=== PATIENT | female | born 1950 | race Caucasian/White ===

== ENCOUNTER 2022-12-24 19:49 | Inpatient (IN) | payer SELFPAY ==
[~2022-12-24] VITALS: Ht 162.6 cm; Wt 62.6 kg
[2022-12-24] MEDS ORDERED: KETOROLAC 30MG/ML VIAL IM ONE (20:15)
[2022-12-24] MEDS ORDERED: MORPHINE SULFATE 4 MG/ML CPJ (NOT FOR IM USE) IV NR (20:45)
[2022-12-24 21:19] LABS: BASOPHILS % 0.7 % (0.0-2.0); EOSINOPHILS % 3.1 % (0.0-5.0); HEMATOCRIT. 33.5 % (36.0-48.0); HEMOGLOBIN. 11.3 g/dL (12.0-16.0); LYMPHOCYTES % 53.2 % (20.0-50.0); MEAN CORPUSCULAR HEMOGLOBIN 31.2 pg (28.0-32.0); MEAN CORPUSCULAR HGB CONC 33.7 g/dL (31.0-37.0); MEAN CORPUSCULAR VOLUME 92.5 fL (81.0-99.0); MEAN PLATELET VOLUME 6.9 fl (7.4-10.4); MONOCYTES % 7.7 % (2.0-8.0); NEUTROPHILS % 35.3 % (40.0-76.0); PLATELET 267 x1000/uL (130-400); RED BLOOD CELL COUNT 3.62 mill/uL (4.2-5.4); RED CELL DISTRIBUTION WIDTH 13.9 % (11.6-14.6)
[2022-12-24 21:30] LABS: CHLORIDE 101 mEq/L (98-107); INDEX HEMOLYSI 1 (1-3); INDEX ICTERIC 1 (1-4); INDEX LIPEMIC 1 (1-3); POTASSIUM 4.5 mEq/L (3.5-5.1); SODIUM 132 mEq/L (136-145)
[2022-12-24 21:32] LABS: PARTIAL THROMBOPLASTIN TIME 27.5 sec (23.4-31.0); PROTHROMBIN TIME 11.1 sec (9.6-11.0)
[2022-12-24 21:38] LABS: ALANINE AMINOTRANSFERASE 46 IU/L (13-61); ALBUMIN 3.3 g/dL (3.4-5.0); ASPARTATE AMINOTRANSFERASE 28 IU/L (15-37); BILIRUBIN TOTAL 0.1 mg/dL (0.1-1.0); CALCIUM 8.7 mg/dL (8.5-10.1); CARBON DIOXIDE 27 mEq/L (21-32); CREATININE 0.6 mg/dL (0.6-1.3); GLUCOSE 91 mg/dL (70-105); PROTEIN TOTAL 7.4 g/dL (6.0-8.3); UREA NITROGEN BLOOD 18 mg/dL (7-21)
[2022-12-24] MEDS ORDERED: ACETAMINOPHEN 325MG TABLET PO PRN ×2 (23:30)
[2022-12-24] MEDS ORDERED: MAGNESIUM/ALUMINUM HYDROXIDE/SIMETHICONE 30ML UDC PO PRN (23:30)
[2022-12-24] MEDS ORDERED: CLONIDINE 0.1MG TABLET PO PRN (23:30)
[2022-12-24] MEDS ORDERED: LORAZEPAM 2MG/ML CPJ IV PRN (23:30)
[2022-12-24] MEDS ORDERED: DEXTROSE 50% WATER 50ML SYRINGE IV PRN (23:30)
[2022-12-24] MEDS ORDERED: IPRATROPIUM/ALBUTEROL 0.5-3(2.5)MG/3ML NEB HHN PRN (23:30)
[2022-12-24] MEDS ORDERED: DOCUSATE SODIUM 100MG CAPSULE PO PRN (23:30)
[2022-12-24] MEDS ORDERED: ONDANSETRON HCL 4MG/2ML INJ IV PRN (23:30)
[2022-12-24] MEDS ORDERED: NALOXONE HCL 0.4MG/ML VIAL IV PRN (23:45)
[2022-12-25] VITALS (7 sets, daily range): BP systolic 69–165; BP diastolic 35–97; PULSE 60–99; RESP 15–20; TEMP 96.1–98.7
[2022-12-25 00:58] LABS: PHOSPHORUS 4.7 mg/dL (2.5-4.9)
[2022-12-25 01:34] LABS: VITAMIN B12 SERUM 503 pg/mL (211-911)
[2022-12-25] MEDS: SODIUM CHLORIDE 0.9% 1,000 ML IV NR ×2 (02:02→14:50)
[2022-12-25] MEDS: HYDROCODONE/ACETAMINOPHEN 5/325MG TABLET PO PRN ×3 (05:51→17:45)
[2022-12-25] MEDS: BLOOD SUGAR DIAGNOSTIC STRIP TEST SCH ×4 (06:03→21:00)
[2022-12-25 06:47] LABS: BASOPHILS % 0.7 % (0.0-2.0); EOSINOPHILS % 3.3 % (0.0-5.0); HEMOGLOBIN. 11.9 g/dL (12.0-16.0); LYMPHOCYTES % 59.1 % (20.0-50.0); MEAN CORPUSCULAR HEMOGLOBIN 31.3 pg (28.0-32.0); MEAN PLATELET VOLUME 7.2 fl (7.4-10.4); MONOCYTES % 7.7 % (2.0-8.0); NEUTROPHILS % 29.2 % (40.0-76.0); PLATELET 275 x1000/uL (130-400); WHITE BLOOD COUNT 5.3 x1000/uL (4.5-11.0)
[2022-12-25 08:01] LABS: CHLORIDE 100 mEq/L (98-107); INDEX HEMOLYSI 1 (1-3); INDEX ICTERIC 1 (1-4); INDEX LIPEMIC 1 (1-3); POTASSIUM 4.4 mEq/L (3.5-5.1); SODIUM 132 mEq/L (136-145)
[2022-12-25 09:36] LABS: ALANINE AMINOTRANSFERASE 55 IU/L (13-61); ALBUMIN 3.1 g/dL (3.4-5.0); ASPARTATE AMINOTRANSFERASE 45 IU/L (15-37); BILIRUBIN TOTAL 0.3 mg/dL (0.1-1.0); CARBON DIOXIDE 28 mEq/L (21-32); CHOLESTEROL 175 mg/dL (<200); CREATINE KINASE 50 IU/L (26-192); CREATINE KINASE MB FRACTION 1.1 ng/mL (0.5-3.6); CREATININE 0.6 mg/dL (0.6-1.3); GLUCOSE 86 mg/dL (70-105); HDL CHOLESTEROL 79 mg/dL (40-59); LDL CHOLESTEROL 86 mg/dL (5-100); TROPONIN I HIGH SENSITIVITY 4 ng/L (<54); UREA NITROGEN BLOOD 15 mg/dL (7-21)
[2022-12-25] MEDS: ENOXAPARIN 40MG/0.4ML SYR SUBCUT SCH (09:47)
[2022-12-25] MEDS: FAMOTIDINE 20MG TABLET PO SCH ×2 (09:47→21:17)
[2022-12-26] MEDS ORDERED: KETOROLAC 30MG/ML VIAL IV PRN (00:30)
[2022-12-26] MEDS: HYDROCODONE/ACETAMINOPHEN 5/325MG TABLET PO PRN (00:48)
[2022-12-26 04:00] VITALS: BP 125/92; PULSE 106; RESP 20; TEMP 97.6
[2022-12-26] MEDS: SODIUM CHLORIDE 0.9% 1,000 ML IV NR (04:10)
[2022-12-26] MEDS: BLOOD SUGAR DIAGNOSTIC STRIP TEST SCH ×4 (06:55→20:13)
[2022-12-26 08:00] VITALS: BP 153/93; PULSE 101; RESP 19; TEMP 98.3
[2022-12-26] MEDS: ENOXAPARIN 40MG/0.4ML SYR SUBCUT SCH (09:00)
[2022-12-26] MEDS ORDERED: RISPERIDONE 1MG TABLET PO SCH (09:00)
[2022-12-26] MEDS ORDERED: RISPERIDONE 0.5MG TABLET PO SCH (09:00)
[2022-12-26] MEDS: FAMOTIDINE 20MG TABLET PO SCH ×2 (09:00→20:06)
[2022-12-26 12:00] VITALS: BP 138/98; PULSE 98; RESP 18; TEMP 98.5
[2022-12-26 16:00] VITALS: BP 128/68; PULSE 99; RESP 19; TEMP 97.5
[2022-12-26 20:00] VITALS: BP 103/67; PULSE 93; RESP 20; TEMP 97.8
[2022-12-26] MEDS: RISPERIDONE 0.5MG TABLET PO SCH (20:06)
[2022-12-26 20:53] LABS: TRIGLYCERIDE 58 mg/dL (0-150)
[2022-12-27] VITALS (7 sets, daily range): BP systolic 128–167; BP diastolic 71–99; PULSE 67–110; RESP 20; TEMP 97.5–98.2; O2SAT 97
[2022-12-27] MEDS: HYDROCODONE/ACETAMINOPHEN 5/325MG TABLET PO PRN ×3 (03:29→20:38)
[2022-12-27 06:40] LABS: BASOPHILS % 0.5 % (0.0-2.0); EOSINOPHILS % 0.3 % (0.0-5.0); HEMATOCRIT. 36.4 % (36.0-48.0); HEMOGLOBIN. 12.7 g/dL (12.0-16.0); LYMPHOCYTES % 37.2 % (20.0-50.0); MEAN CORPUSCULAR HGB CONC 34.9 g/dL (31.0-37.0); MEAN CORPUSCULAR VOLUME 91.6 fL (81.0-99.0); MEAN PLATELET VOLUME 7.1 fl (7.4-10.4); MONOCYTES % 7.6 % (2.0-8.0); NEUTROPHILS % 54.4 % (40.0-76.0); PLATELET 317 x1000/uL (130-400); RED BLOOD CELL COUNT 3.98 mill/uL (4.2-5.4); RED CELL DISTRIBUTION WIDTH 13.7 % (11.6-14.6); WHITE BLOOD COUNT 6.5 x1000/uL (4.5-11.0)
[2022-12-27] MEDS: BLOOD SUGAR DIAGNOSTIC STRIP TEST SCH ×3 (07:20→20:58)
[2022-12-27 08:25] LABS: CALCIUM 9.4 mg/dL (8.5-10.1); CHLORIDE 100 mEq/L (98-107); INDEX HEMOLYSI 1 (1-3); INDEX ICTERIC 1 (1-4); INDEX LIPEMIC 1 (1-3); POTASSIUM 4.2 mEq/L (3.5-5.1); SODIUM 134 mEq/L (136-145)
[2022-12-27 08:34] LABS: CARBON DIOXIDE 23 mEq/L (21-32); CREATININE 0.5 mg/dL (0.6-1.3); GLUCOSE 78 mg/dL (70-105); UREA NITROGEN BLOOD 12 mg/dL (7-21)
[2022-12-27] MEDS: RISPERIDONE 0.5MG TABLET PO SCH (08:46)
[2022-12-27] MEDS: FAMOTIDINE 20MG TABLET PO SCH ×2 (08:46→20:27)
[2022-12-27] MEDS: ENOXAPARIN 40MG/0.4ML SYR SUBCUT SCH (08:47)
[2022-12-27] MEDS ORDERED: RISP1 PO (12:15)
[2022-12-27] MEDS: RISPERIDONE 1MG TABLET PO SCH ×2 (16:02→20:27)
[2022-12-27 19:12] LABS: FERRITIN 146 ng/mL (10-291)
[2022-12-28] VITALS: BP 135/85; PULSE 94; RESP 20; TEMP 98.1
[2022-12-28 04:00] VITALS: BP 148/88; PULSE 91; RESP 20; TEMP 97.9
[2022-12-28] MEDS: HYDROCODONE/ACETAMINOPHEN 5/325MG TABLET PO PRN (05:46)
[2022-12-28] MEDS: BLOOD SUGAR DIAGNOSTIC STRIP TEST SCH (07:20)
[2022-12-28 08:00] VITALS: BP 151/90; PULSE 83; RESP 19; TEMP 97.1
[2022-12-28 08:15] LABS: BASOPHILS % 0.6 % (0.0-2.0); EOSINOPHILS % 1.5 % (0.0-5.0); HEMATOCRIT. 38.7 % (36.0-48.0); HEMOGLOBIN. 13.4 g/dL (12.0-16.0); LYMPHOCYTES % 38.8 % (20.0-50.0); MEAN CORPUSCULAR HGB CONC 34.6 g/dL (31.0-37.0); MEAN CORPUSCULAR VOLUME 92.5 fL (81.0-99.0); MONOCYTES % 9.8 % (2.0-8.0); NEUTROPHILS % 49.3 % (40.0-76.0); PLATELET 309 x1000/uL (130-400); RED BLOOD CELL COUNT 4.18 mill/uL (4.2-5.4); WHITE BLOOD COUNT 5.4 x1000/uL (4.5-11.0)
[2022-12-28] MEDS: RISPERIDONE 1MG TABLET PO SCH (08:22)
[2022-12-28] MEDS: ENOXAPARIN 40MG/0.4ML SYR SUBCUT SCH (08:22)
[2022-12-28] MEDS: FAMOTIDINE 20MG TABLET PO SCH (08:22)
[2022-12-28 09:15] LABS: CHLORIDE 102 mEq/L (98-107); INDEX HEMOLYSI 3 (1-3); INDEX ICTERIC 1 (1-4); INDEX LIPEMIC 1 (1-3); POTASSIUM 4.2 mEq/L (3.5-5.1); SODIUM 132 mEq/L (136-145)
[2022-12-28 09:25] LABS: CALCIUM 9.2 mg/dL (8.5-10.1); CARBON DIOXIDE 22 mEq/L (21-32); CREATININE 0.4 mg/dL (0.6-1.3); GLUCOSE 98 mg/dL (70-105); UREA NITROGEN BLOOD 11 mg/dL (7-21)
[2022-12-28 12:00] VITALS: BP 136/93; PULSE 90; RESP 18; TEMP 97.5
[2022-12-29] MEDS ORDERED: PRIM250T7 PO (11:45)
[2022-12-29] MEDS ORDERED: OLAN10TA3 PO (11:45)
[2022-12-29] MEDS ORDERED: METO-385 PO (11:45)
[2022-12-29] MEDS ORDERED: APIX5TAB PO (11:45)
[2022-12-29] MEDS ORDERED: [UNRECOGNIZED DRUG - CODE] (11:45)
[2022-12-29] MEDS ORDERED: DOCU250C69 PO (11:45)
[2022-12-29] MEDS ORDERED: TEMA15CA PO (11:45)
[2022-12-29] MEDS ORDERED: ATOR10TA69 PO (11:45)
[2022-12-29] MEDS ORDERED: PHEN20EL5 PO (11:45)
[2022-12-29] MEDS ORDERED: OXYC1TAB5 PO (11:45)
[2022-12-29] MEDS ORDERED: GABA-534 PO (11:45)
[2022-12-29] MEDS ORDERED: RISP0.5T65 PO (11:45)
[2022-12-29] MEDS ORDERED: FURO20TA4 PO (11:45)
[2022-12-29] MEDS ORDERED: OLAN15TA35 PO (11:45)
[2022-12-29] MEDS ORDERED: [UNRECOGNIZED DRUG - OTHER] (11:45)
[2022-12-29] MEDS ORDERED: TOPUD MT (17:00)
[2022-12-29] MEDS ORDERED: PANT40SU MT (17:25)
[2022-12-29] MEDS ORDERED: CEPH500C2 MT (20:05)
== END 2022-12-28 11:35 | DRG 342 ==
LOC: ER 19:49 → MICUSO 22:03 → 6EST 12-25 00:30
PROVIDERS: ADMIT Internal Medicine; ATTEND Internal Medicine
DX: S42.291A Other displaced fracture of upper end of right humerus, initial encounter for closed fracture (principal); I11.0 Hypertensive heart disease with heart failure; E87.1 Hypo-osmolality and hyponatremia; I50.9 Heart failure, unspecified; G40.409 Other generalized epilepsy and epileptic syndromes, not intractable, without status epilepticus; D64.9 Anemia, unspecified; E86.0 Dehydration; I25.10 Atherosclerotic heart disease of native coronary artery without angina pectoris; I10 Essential (primary) hypertension; W19.XXXA Unspecified fall, initial encounter; Z79.899 Other long term (current) drug therapy; Z85.05 Personal history of malignant neoplasm of liver; Z86.718 Personal history of other venous thrombosis and embolism; Z87.891 Personal history of nicotine dependence; Z92.21 Personal history of antineoplastic chemotherapy; Z95.5 Presence of coronary angioplasty implant and graft; Z95.828 Presence of other vascular implants and grafts
CPT/HCPCS: 36415; 71045; 73060; 73200; 74018; 76700; 80048; 80053; 80061; 82550; 82553; 82607; 82728; 82746; 82962; 83036; 83540; 83550; 83735; 83930; 84100; 84439; 84443; 84481; 84484; 85025; 85379; 86850; 86900; 93005; 93970; 97162; 97166; 99285; J1650; J1885; J2270; J7030

== ENCOUNTER 2022-12-29 11:36 | Emergency (ER) | payer SELFPAY ==
[~2022-12-29] VITALS: Ht 162.6 cm; Wt 55.0 kg
[~2022-12-29 11:36] MED LIST: RISP1 PO
[2022-12-29 11:45] VITALS: O2SAT 96
[2022-12-29] MEDS ORDERED: [UNRECOGNIZED DRUG - CODE] (11:45)
[2022-12-29] MEDS ORDERED: PHEN20EL5 PO (11:45)
[2022-12-29] MEDS ORDERED: OLAN15TA35 PO (11:45)
[2022-12-29] MEDS ORDERED: FURO20TA4 PO (11:45)
[2022-12-29] MEDS ORDERED: OXYC1TAB5 PO (11:45)
[2022-12-29] MEDS ORDERED: TEMA15CA PO (11:45)
[2022-12-29] MEDS ORDERED: OLAN10TA3 PO (11:45)
[2022-12-29] MEDS ORDERED: METO-385 PO (11:45)
[2022-12-29] MEDS ORDERED: GABA-534 PO (11:45)
[2022-12-29] MEDS ORDERED: ATOR10TA69 PO (11:45)
[2022-12-29] MEDS ORDERED: APIX5TAB PO (11:45)
[2022-12-29] MEDS ORDERED: DOCU250C69 PO (11:45)
[2022-12-29] MEDS ORDERED: PRIM250T7 PO (11:45)
[2022-12-29] MEDS ORDERED: [UNRECOGNIZED DRUG - OTHER] (11:45)
[2022-12-29] MEDS ORDERED: RISP0.5T65 PO (11:45)
[2022-12-29] MEDS ORDERED: MORPHINE SULFATE 4 MG/ML CPJ (NOT FOR IM USE) IV STA (12:01)
[2022-12-29] MEDS ORDERED: SODIUM CHLORIDE 0.9% 1,000 ML IV ONE (12:15)
[2022-12-29 13:01] LABS: BASOPHILS % 0.5 % (0.0-2.0); EOSINOPHILS % 1.2 % (0.0-5.0); HEMATOCRIT. 34.8 % (36.0-48.0); HEMOGLOBIN. 11.9 g/dL (12.0-16.0); LYMPHOCYTES % 48.2 % (20.0-50.0); MEAN CORPUSCULAR HEMOGLOBIN 31.1 pg (28.0-32.0); MEAN CORPUSCULAR VOLUME 91.4 fL (81.0-99.0); MEAN PLATELET VOLUME 6.9 fl (7.4-10.4); MONOCYTES % 9.5 % (2.0-8.0); NEUTROPHILS % 40.6 % (40.0-76.0); PLATELET 347 x1000/uL (130-400); RED BLOOD CELL COUNT 3.81 mill/uL (4.2-5.4); RED CELL DISTRIBUTION WIDTH 13.9 % (11.6-14.6); WHITE BLOOD COUNT 7.2 x1000/uL (4.5-11.0)
[2022-12-29 13:03] LABS: INR 1.1; PROTHROMBIN TIME 11.6 sec (9.6-11.0)
[2022-12-29 13:23] LABS: CHLORIDE 105 mEq/L (98-107); INDEX HEMOLYSI 1 (1-3); INDEX ICTERIC 1 (1-4); INDEX LIPEMIC 1 (1-3); POTASSIUM 3.8 mEq/L (3.5-5.1); SODIUM 134 mEq/L (136-145)
[2022-12-29 13:34] LABS: ALANINE AMINOTRANSFERASE 49 IU/L (13-61); ALBUMIN 3.6 g/dL (3.4-5.0); ASPARTATE AMINOTRANSFERASE 23 IU/L (15-37); BILIRUBIN TOTAL 0.3 mg/dL (0.1-1.0); CALCIUM 9.2 mg/dL (8.5-10.1); CARBON DIOXIDE 23 mEq/L (21-32); CREATININE 1.2 mg/dL (0.6-1.3); GLUCOSE 104 mg/dL (70-105); PROTEIN TOTAL 7.7 g/dL (6.0-8.3); TROPONIN I HIGH SENSITIVITY 8 ng/L (<54); UREA NITROGEN BLOOD 36 mg/dL (7-21)
[2022-12-29] MEDS ORDERED: MORPHINE SULFATE 4 MG/ML CPJ (NOT FOR IM USE) IV NR (14:50)
[2022-12-29] MEDS ORDERED: KETOROLAC 30MG/ML VIAL IV ONE (16:30)
[2022-12-29] MEDS ORDERED: MORPHINE SULFATE 4 MG/ML CPJ (NOT FOR IM USE) IV ONE (16:30)
[2022-12-29] MEDS ORDERED: TOPUD MT (17:00)
[2022-12-29] MEDS ORDERED: PANT40SU MT (17:25)
[2022-12-29] MEDS ORDERED: FAMOTIDINE 20MG/2ML VIAL IV NR (17:30)
[2022-12-29] MEDS ORDERED: MAGNESIUM/ALUMINUM HYDROXIDE/SIMETHICONE 30ML UDC PO NR (17:30)
[2022-12-29 19:40] LABS: CLARITY URINE TURBID (CLEAR); COLOR URINE YELLOW (YELLOW); GLUCOSE URINE NEGATIVE (NEGATIVE); KETONES URINE NEGATIVE (NEGATIVE); LEUKOCYTE ESTERASE URINE 1+ (NEGATIVE); NITRITE URINE POSITIVE (NEGATIVE); OCCULT BLOOD URINE 1+ (NEGATIVE); PROTEIN URINE TRACE (NEGATIVE); UROBILINOGEN URINE 0.2 E.U./dL (0.2-1.0)
[2022-12-29 20:03] LABS: BACTERIA URINE 1+; RBC URINE 0-2 /hpf (0-2); SQUAMOUS EPITHELIAL CELL URINE 2+ /lpf (RARE/1+)
[2022-12-29] MEDS ORDERED: CEPH500C2 MT (20:05)
[2022-12-29] MEDS ORDERED: CEFTRIAXONE SODIUM 1 G/VIAL IM ONE (20:15)
[2022-12-29] MEDS ORDERED: LIDOCAINE HCL 1% 20ML VIAL (Pyxis) INJ INFIL ONE (20:15)
[2022-12-30 22:18] VITALS: BP 132/77; PULSE 81; RESP 18; TEMP 98.3
== END 2022-12-30 22:33 ==
LOC: ER 11:38
DX: R10.9 Unspecified abdominal pain (principal); N39.0 Urinary tract infection, site not specified; I10 Essential (primary) hypertension; F20.9 Schizophrenia, unspecified; Z85.05 Personal history of malignant neoplasm of liver; Z79.899 Other long term (current) drug therapy
CPT/HCPCS: 80053; 81003; 83605; 83690; 85025; 85610; 84484; 36415; 74177; 96361; 96372; 96374; 96375; 96376; 99285; J0696; J1885; J3490; J2270; J7030; Z7610 ×6